=== PATIENT | male | born 1955 | race Caucasian/White ===

== ENCOUNTER 2025-03-04 05:40 | Day surgery (SDC) | payer MEDICARE ==
[2025-03-03 10:50] VITALS: BMI 25.8
[2025-03-04] MEDS ORDERED: Bupivacaine HCl 0.5%/Epinephrine 1:200,000/PF 30 ml Vial ONE (06:03)
[2025-03-04] MEDS ORDERED: CEFAZOLIN 2 GM VIAL ONE (06:53)
[2025-03-04] MEDS ORDERED: PROPOFOL 20 ML ONE (06:53)
[2025-03-04] MEDS ORDERED: PHENYLEPHRINE-NS 100 MCG/ML 10 ML SYRINGE ONE (06:53)
[2025-03-04] MEDS ORDERED: HYDROcodone/Acetaminophen 5/325 mg Tablet ONE (08:31)
== END 2025-03-04 09:00 | disposition home or self-care (01) ==
LOC: CSHSDC 05:40
PROVIDERS: ATTEND Surgery
PROC: 0JH60WZ Insertion of Totally Implantable Vascular Access Device into Chest Subcutaneous Tissue and Fascia, Open Approach (ICD-10-PCS; principal; 2025-03-04)
DX: C22.0 Liver cell carcinoma (principal)
CPT/HCPCS: 36561; 71045; A6258; C1788; J1642; J2704